=== PATIENT | female | born 1960 | race African-American/Black ===

== ENCOUNTER 2022-04-07 14:44 | Emergency (ER) | payer MEDICAID, OTHER ==
[~2022-04-07] VITALS: Ht 165.1 cm; Wt 78.0 kg
[~2022-04-07 14:44] MED LIST: AMLO2.5T45 PO; HYDR12.529 PO; TRAM50TA3 PO
[2022-04-07] MEDS ORDERED: SODIUM CHLORIDE 0.9% 1,000 ML IV ONE (15:00)
[2022-04-07 15:52] LABS: BASOPHILS % 1.2 % (0.0-2.0); EOSINOPHILS % 1.3 % (0.0-5.0); HEMATOCRIT. 40.2 % (36.0-48.0); MEAN CORPUSCULAR HEMOGLOBIN 29.1 pg (28.0-32.0); MEAN CORPUSCULAR VOLUME 90.1 fL (81.0-99.0); MONOCYTES % 6.1 % (2.0-8.0); NEUTROPHILS % 73.4 % (40.0-76.0); RED BLOOD CELL COUNT 4.46 mill/uL (4.2-5.4); RED CELL DISTRIBUTION WIDTH 17.1 % (11.6-14.6)
[2022-04-07 15:58] LABS: CHLORIDE 110 mEq/L (98-107)
[2022-04-07 16:05] LABS: CREATINE KINASE 154 IU/L (26-192); ETHANOL BLOOD < 10 mg/dL
[2022-04-07 16:08] LABS: INR 3.8; PROTHROMBIN TIME 37.1 sec (9.6-11.0)
[2022-04-07 17:07] LABS: PLATELET 367 x1000/uL (130-400)
[2022-04-07 17:08] LABS: MEAN PLATELET VOLUME 9.1 fl (7.4-10.4)
[2022-04-07] MEDS ORDERED: MORPHINE SULFATE 2 MG/ML CPJ (NOT FOR IM USE) IV ONE (17:30)
[2022-04-07] MEDS ORDERED: HALOPERIDOL LACTATE 5MG/ML VIAL IM ONE (18:15)
[2022-04-07] MEDS ORDERED: LORAZEPAM 2MG/ML CPJ IM ONE (18:15)
[2022-04-07] MEDS ORDERED: OLANZAPINE 10 MG/VIAL IM ONE (20:30)
[2022-04-07] MEDS ORDERED: DIPHENHYDRAMINE 50MG/ML VIAL IM ONE (20:30)
[2022-04-07 21:59] LABS: CLARITY URINE CLEAR (CLEAR); COLOR URINE YELLOW (YELLOW); KETONES URINE 1+ (NEGATIVE); LEUKOCYTE ESTERASE URINE NEGATIVE (NEGATIVE); NITRITE URINE NEGATIVE (NEGATIVE); OCCULT BLOOD URINE NEGATIVE (NEGATIVE); PH URINE 7.5 (4.5-8.0); PROTEIN URINE NEGATIVE (NEGATIVE); SPECIFIC GRAVITY URINE 1.011 (1.005-1.030); UROBILINOGEN URINE 0.2 E.U./dL (0.2-1.0)
[2022-04-07 22:15] LABS: *AMPHETAMINES SCREEN URINE NEGATIVE (NEGATIVE); *BARBITURATES SCREEN URINE NEGATIVE (NEGATIVE); *BENZODIAZEPINES SCREEN URINE PRESUMTIVE POSITIVE (NEGATIVE); *COCAINE SCREEN URINE NEGATIVE (NEGATIVE); CANNABINOID URINE SCREEN NEGATIVE (NEGATIVE); METHADONE URINE SCREEN NEGATIVE (NEGATIVE); OPIATES URINE SCREEN PRESUMTIVE POSITIVE (NEGATIVE); PHENCYCLIDINE URINE SCREEN NEGATIVE (NEGATIVE)
[2022-04-08] VITALS: BP 140/86
== END 2022-04-08 00:34 | disposition short-term general hospital (02) ==
LOC: ER 14:44 → CANBEDREQ 04-08 16:19
DX: R41.82 Altered mental status, unspecified (principal); I10 Essential (primary) hypertension; R94.31 Abnormal electrocardiogram [ECG] [EKG]
CPT/HCPCS: 36415; 70450; 71045; 80053; 80305; 80320; 81003; 82550; 83605; 83690; 83880; 84484; 85025; 85610; 86850; 86900; 86901; 87040; 87086; 93005; 96361; 96372; 96374; 99285; J1200; J1630; J2270; J3490; G0480